=== PATIENT | female | born 1970 | race Caucasian/White ===

== ENCOUNTER 2016-03-25 21:48 | Emergency (ER) | payer SELFPAY ==
[2016-03-25] MEDS ORDERED: NAPROXEN 250 MG TAB As Ordered ONE (23:08)
--- NOTE | 2016-03-25 23:18 | EDDOCDS ---
Nurse's Notes [facility] Name: Nita Alexis Age: 46 yrs Sex: Female : 1970 Arrival Date: 03/25/2016 Time: 21:48 Bed PR2 / Private MD: Adrienne Dozier Ellen Diagnosis: Olecranon bursitis, left elbow Presentation: 03/25 21:53 Presenting complaint: Patient states: she fell on elbow on Tez no exam has been cz doing ok until a couple of days ago she started with pain and swelling of joint. Adult Sepsis Screening: The patient does not have new or worsening altered mentation. Patient's respiratory rate is less than 22. Systolic blood pressure is greater than 100. Patient has a qSOFA score of 0- Negative Sepsis Screen. Suicide/Homicide risk assessment- the patient denies having any suicidal and/or homicidal ideations and does not present with any other emotional, behavioral or mental health complaints. Status: Patient is not a employment service specialist or dependent. Transition of care: patient was not received from another setting of care. 21:53 Acuity: RAMAN Level 4 cz 21:53 Method Of Arrival: Walkin/Carried/Asstd cz Triage Assessment: 21:57 General: Appears uncomfortable. Pain: Location: left antecubital area and left elbow cz Pain currently is 8 out of 10 on a pain scale. HIV screening NA for this visit Offered previously. 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 none - PMHx: Anxiety; Depression; Sleep Apnea w/ CPAP; - PSHx: LEEP Procedure; Cholecystectomy; ; - Social history: Smoking status: Patient uses tobacco products, heavy tobacco smoker. No barriers to communication noted, The patient speaks fluent Mohawk, Speaks appropriately for age. - Family history: No immediate family members are acutely ill. - : The pt / caregiver states he / she is not on anticoagulants. Home medication list is obtained from the patient. - Exposure Risk Screening:: None identified. Screenin:15 Screening information is obtained from the patient. Fall risk: No risks identified. mb9 Assistance ADL's: requires no assistance with activities of daily living. Abuse/DV Screen: The patient / caregiver reports he/she is: not in a situation that causes fear, pain or injury. Nutritional screening: No deficits noted. Advance Directives: There is. home support is adequate. Assessment: 23:15 General: Appears in no apparent distress, Behavior is appropriate for age, cooperative. mb9 Pain: Location: left elbow Pain currently is 3 out of 10 on a pain scale. Respiratory: Airway is patent Respiratory effort is even, unlabored. Musculoskeletal: Circulation, motion, and sensation intact. Vital Signs: 21:51 BP 113 / 72; Pulse 98; Resp 18 S; Temp 95.9(O); Pulse Ox 99% on R/A; Weight 122.92 kg gr2 (R); Height 5 ft. 2 in. (157.48 cm) (R); Pain 4/10; 23:17 BP 121 / 78; Pulse 94; Resp 17; Temp 96.3(T); Pulse Ox 98% ; mb9 21:51 Body Mass Index 49.57 (122.92 kg, 157.48 cm) gr2 Vitals: 21:51 Log In Time: March 25, 2016 at 21:51. gr2 ED Course: 21:51 Patient visited by Ashley Kaplan. gr2 21:51 Adrienne Dozier is Private Physician. gr2 21:51 Patient moved to Waiting gr2 21:52 Patient visited by Ashley Kaplan. gr2 21:53 Patient moved to Pre RCE gr2 21:56 Triage Initiated cz 22:52 [facility] Bojor[facility] F[facility]. le 22:53 Patient visited by Cecilia Bojorquez FNP. le 22:53 Patient moved to PR2 / 26 mdr 23:02 Adrienne Dozier is Referral Physician. le 23:04 Patient visited by Cecilia Bojorquez FNP. le 23:15 The patient / caregiver is instructed regarding the plan of care and ED course. mb9 23:15 No IV's were initiated during this patient's visit. No procedures done that require mb9 assistance. Administered Medications: 23:14 Drug: Naproxen 500 mg [naproxen 250 mg tablet (2 tabs)] Route: PO; mb9 Order Results: There are currently no results for this order. Outcome: 23:02 Discharge ordered by Provider. le 23:15 Discharge Assessment: Patient awake, alert and oriented x 3. No cognitive and/or mb9 functional deficits noted. Patient verbalized understanding of disposition instructions. patient administered narcotics - no. The following High Risk Discharge criteria are identified: None. Discharged to home ambulatory. Condition: good Condition: stable Condition: improved. Discharge instructions given to patient, Instructed on discharge instructions, follow up and referral plans. medication usage, Demonstrated understanding of instructions, medications, Pt was receptive of discharge instructions/ teaching. Prescriptions given X 1. No special radiology studies were completed. Property :Personal belongings accompany Pt. 23:17 Patient left the ED. mb9 Signatures: Loki Berman, RN RN cz Cecilia Bojorquez, COMPOSITION FLOOR LAYER COMPOSITION FLOOR LAYER Ashley Denny gr2 Jak De Guzman RN RN mb9 Lizandro Cortes, JC DATA ANALYTICS CHIEF SCIENTIST mdr MTDD
--- NOTE | 2016-03-25 23:18 | EDDOCDS ---
Physician Documentation [facility] Name: Nita Alexis Age: 46 yrs Sex: Female : 1970 Arrival Date: 03/25/2016 Time: 21:48 Bed PR Private MD: Adrienne Dozier Ellen Disposition: 03/25/16 23:02 Discharged to Home/Self Care. Impression: Olecranon bursitis, left elbow. - Condition is Stable. - Discharge Instructions: Repetitive Strain Injuries, Olecranon Bursitis. - Prescriptions for Naprosyn 500 mg Oral Tablet - take 1 tablet by ORAL route 2 times per day take with food; 30 tablet. - Medication Reconciliation, Local Pharmacy Hours form. - Follow up: Adrienne Dozier; When: As needed; Reason: Recheck today's complaints, Continuance of care. - Problem is new. - Symptoms are unchanged. - Notes: Return to the ED for any further concerns Historical: - Allergies: No known drug Allergies; - Home Meds: 1. none - PMHx: Anxiety; Depression; Sleep Apnea w/ CPAP; - PSHx: LEEP Procedure; Cholecystectomy; ; - Social history: Smoking status: Patient uses tobacco products, heavy tobacco smoker. No barriers to communication noted, The patient speaks fluent Azeri, Speaks appropriately for age. - Family history: No immediate family members are acutely ill. - : The pt / caregiver states he / she is not on anticoagulants. Home medication list is obtained from the patient. - Exposure Risk Screening:: None identified. 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 2 in. (157.48 cm) (R); Pain 4/10; 23:17 BP 121 / 78; Pulse 94; Resp 17; Temp 96.3(T); Pulse Ox 98% ; mb9 21:51 Body Mass Index 49.57 (122.92 kg, 157.48 cm) gr2 MDM: 22:01 Elbow, Complete Ordered. EDMS 22:59 Naproxen 500 mg PO once; administer with food or milk ordered. le 22:59 Teja Wrap ordered. le Administered Medications: 23:14 Drug: Naproxen 500 mg [naproxen 250 mg tablet (2 tabs)] Route: PO; mb9 Signatures: Dispatcher [employer] Loki Aquino RN RN cz Westcott, Lisa, HORSER UP HORSER UP Jak Marshall RN RN mb9 MTDD
--- NOTE | 2016-03-26 07:06 | REP ---
Clinical: Deformity and swelling . Technique: AP, bilateral oblique views of the left elbow. Findings: No acute fracture or dislocation is appreciated. Joint spaces and surrounding soft tissues appear normal. No subcutaneous emphysema or foreign body identified. Impression: Normal three views of the left elbow radiographs. Signed by Partha Murphy MD 03/26/2016 06:57 A
--- NOTE | 2016-03-28 00:18 | EDDOCDS ---
Physician Documentation [facility] Name: Nita Alexis Age: 46 yrs Sex: Female : 1970 Arrival Date: 03/25/2016 Time: 21:48 Bed PR Private MD: Adrienne Dozier Ellen Disposition: 03/25/16 23:02 Discharged to Home/Self Care. Impression: Olecranon bursitis, left elbow. - Condition is Stable. - Discharge Instructions: Repetitive Strain Injuries, Olecranon Bursitis. - Prescriptions for Naprosyn 500 mg Oral Tablet - take 1 tablet by ORAL route 2 times per day take with food; 30 tablet. - Medication Reconciliation, Local Pharmacy Hours form. - Follow up: Adrienne Dozier; When: As needed; Reason: Recheck today's complaints, Continuance of care. - Problem is new. - Symptoms are unchanged. - Notes: Return to the ED for any further concerns Historical: - Allergies: No known drug Allergies; - Home Meds: 1. none - PMHx: Anxiety; Depression; Sleep Apnea w/ CPAP; - PSHx: LEEP Procedure; Cholecystectomy; ; - Social history: Smoking status: Patient uses tobacco products, heavy tobacco smoker. No barriers to communication noted, The patient speaks fluent Telugu, Speaks appropriately for age. - Family history: No immediate family members are acutely ill. - : The pt / caregiver states he / she is not on anticoagulants. Home medication list is obtained from the patient. - Exposure Risk Screening:: None identified. 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 2 in. (157.48 cm) (R); Pain 4/10; 23:17 BP 121 / 78; Pulse 94; Resp 17; Temp 96.3(T); Pulse Ox 98% ; mb9 21:51 Body Mass Index 49.57 (122.92 kg, 157.48 cm) gr2 MDM: 22:01 Elbow, Complete Ordered. EDMS 22:59 Naproxen 500 mg PO once; administer with food or milk ordered. le 22:59 Teja Wrap ordered. le 23:22 [facility] Payment Agreement was scanned into [employer] and attached to record. [facility] :23 Financial registration complete. 03/26 12:01 T-Sheet-- Draft Copy was scanned into [employer] and attached to record. gb Administered Medications: 03/25 23:14 Drug: Naproxen 500 mg [naproxen 250 mg tablet (2 tabs)] Route: PO; mb9 Signatures: Dispatcher [employer] EDMS Loki Berman, RN RN cz Clare Richey, Reg Reg gb Cecilia Bojorquez, COKE LOADER COKE LOADER Jak Marshall RN RN mb9 Arti Vogt, Reg Reg [email or web address] The chart was reviewed and I authenticate all verbal orders and agree with the evaluation and treatment provided.Attachments: 23:22 [facility] Payment Agreement [email or web address] 03/26 12:01 T-Sheet-- Draft Copy gb Chart Complete MTDD
--- NOTE | 2016-03-28 00:18 | EDDOCDS ---
Nurse's Notes [facility] Name: Nita Alexis Age: 46 yrs Sex: Female : 1970 Arrival Date: 03/25/2016 Time: 21:48 Bed PR2 / Private MD: Adrienne Dozier Ellen Diagnosis: Olecranon bursitis, left elbow Presentation: 03/25 21:53 Presenting complaint: Patient states: she fell on elbow on [place]z no exam has been cz doing ok until a couple of days ago she started with pain and swelling of joint. Adult Sepsis Screening: The patient does not have new or worsening altered mentation. Patient's respiratory rate is less than 22. Systolic blood pressure is greater than 100. Patient has a qSOFA score of 0- Negative Sepsis Screen. Suicide/Homicide risk assessment- the patient denies having any suicidal and/or homicidal ideations and does not present with any other emotional, behavioral or mental health complaints. Status: Patient is not a elevator service mechanic or dependent. Transition of care: patient was not received from another setting of care. 21:53 Acuity: RAMAN Level 4 cz 21:53 Method Of Arrival: Walkin/Carried/Asstd cz Triage Assessment: 21:57 General: Appears uncomfortable. Pain: Location: left antecubital area and left elbow cz Pain currently is 8 out of 10 on a pain scale. HIV screening NA for this visit Offered previously. 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 none - PMHx: Anxiety; Depression; Sleep Apnea w/ CPAP; - PSHx: LEEP Procedure; Cholecystectomy; ; - Social history: Smoking status: Patient uses tobacco products, heavy tobacco smoker. No barriers to communication noted, The patient speaks fluent Yakut, Speaks appropriately for age. - Family history: No immediate family members are acutely ill. - : The pt / caregiver states he / she is not on anticoagulants. Home medication list is obtained from the patient. - Exposure Risk Screening:: None identified. Screenin:15 Screening information is obtained from the patient. Fall risk: No risks identified. mb9 Assistance ADL's: requires no assistance with activities of daily living. Abuse/DV Screen: The patient / caregiver reports he/she is: not in a situation that causes fear, pain or injury. Nutritional screening: No deficits noted. Advance Directives: There is. home support is adequate. Assessment: 23:15 General: Appears in no apparent distress, Behavior is appropriate for age, cooperative. mb9 Pain: Location: left elbow Pain currently is 3 out of 10 on a pain scale. Respiratory: Airway is patent Respiratory effort is even, unlabored. Musculoskeletal: Circulation, motion, and sensation intact. Vital Signs: 21:51 BP 113 / 72; Pulse 98; Resp 18 S; Temp 95.9(O); Pulse Ox 99% on R/A; Weight 122.92 kg gr2 (R); Height 5 ft. 2 in. (157.48 cm) (R); Pain 4/10; 23:17 BP 121 / 78; Pulse 94; Resp 17; Temp 96.3(T); Pulse Ox 98% ; mb9 21:51 Body Mass Index 49.57 (122.92 kg, 157.48 cm) gr2 Vitals: 21:51 Log In Time: March 25, 2016 at 21:51. gr2 ED Course: 21:51 Patient visited by Ashley Kaplan. gr2 21:51 Adrienne Dozier is Private Physician. gr2 21:51 Patient moved to Waiting gr2 21:52 Patient visited by Ashley Kaplan. gr2 21:53 Patient moved to Pre RCE gr2 21:56 Triage Initiated cz 22:52 [facility] le 22:53 Patient visited by Cecilia Bojorquez FNP. le 22:53 Patient moved to PR2 / 26 mdr 23:02 Adrienne Dozier is Referral Physician. le 23:04 Patient visited by Cecilia Bojorquez FNP. le 23:15 The patient / caregiver is instructed regarding the plan of care and ED course. mb9 23:15 No IV's were initiated during this patient's visit. No procedures done that require mb9 assistance. 23:20 Patient name changed from Nita\S\\S\[place]\S\ to Nita\S\ \S\[place]. EDMS 23:22 [facility] [place] was scanned into [employer] and attached to record. [email or web address] 03/26 07:41 Elbow, Complete Returned. EDMS 12:01 T-Sheet-- Draft Copy was scanned into [employer] and attached to record. gb Administered Medications: 03/25 23:14 Drug: Naproxen 500 mg [naproxen 250 mg tablet (2 tabs)] Route: PO; mb9 Order Results: Radiology Order: Elbow, Complete Test: Elbow, Complete REASON FOR EXAMINATION: Deformity/Swelling; Clinical: Deformity and swelling .; ; Technique: AP, bilateral oblique views of the left elbow.; ; Findings:; No acute fracture or dislocation is appreciated. Joint spaces and surrounding; soft tissues appear normal. No subcutaneous emphysema or foreign body; identified.; ; Impression:; Normal three views of the left elbow radiographs.; ; ; Signed by; Partha Murphy MD 03/26/2016 06:57 A; Outcome: 23:02 Discharge ordered by Provider. le 23:15 Discharge Assessment: Patient awake, alert and oriented x 3. No cognitive and/or mb9 functional deficits noted. Patient verbalized understanding of disposition instructions. patient administered narcotics - no. The following High Risk Discharge criteria are identified: None. Discharged to home ambulatory. Condition: good Condition: stable Condition: improved. Discharge instructions given to patient, Instructed on discharge instructions, follow up and referral plans. medication usage, Demonstrated understanding of instructions, medications, Pt was receptive of discharge instructions/ teaching. Prescriptions given X 1. No special radiology studies were completed. Property :Personal belongings accompany Pt. 23:17 Patient left the ED. mb9 Signatures: [facility] Loki Berman RN RN cz Barnhardt, Gloria, Reg Reg gb Cecilia Bojorquez, GATHERING MACHINE FEEDER GATHERING MACHINE FEEDER Ashley Denny gr2 Jak De Guzman RN RN mb9 Lizandro Cortes, HEALTH ADMINISTRATOR HEALTH ADMINISTRATOR Arti Reveles, Reg Reg [email or web address] Chart Complete MTDD
--- NOTE | 2016-03-28 00:18 | EDDOCDS ---
Physician Documentation [facility] Name: Nita Alexis Age: 46 yrs Sex: Female : 1970 Arrival Date: 03/25/2016 Time: 21:48 Bed PR Private MD: Adrienne Dozier Ellen Disposition: 03/25/16 23:02 Discharged to Home/Self Care. Impression: Olecranon bursitis, left elbow. - Condition is Stable. - Discharge Instructions: Repetitive Strain Injuries, Olecranon Bursitis. - Prescriptions for Naprosyn 500 mg Oral Tablet - take 1 tablet by ORAL route 2 times per day take with food; 30 tablet. - Medication Reconciliation, Local Pharmacy Hours form. - Follow up: Adrienne Dozier; When: As needed; Reason: Recheck today's complaints, Continuance of care. - Problem is new. - Symptoms are unchanged. - Notes: Return to the ED for any further concerns Historical: - Allergies: No known drug Allergies; - Home Meds: 1. none - PMHx: Anxiety; Depression; Sleep Apnea w/ CPAP; - PSHx: LEEP Procedure; Cholecystectomy; ; - Social history: Smoking status: Patient uses tobacco products, heavy tobacco smoker. No barriers to communication noted, The patient speaks fluent Divehi, Speaks appropriately for age. - Family history: No immediate family members are acutely ill. - : The pt / caregiver states he / she is not on anticoagulants. Home medication list is obtained from the patient. - Exposure Risk Screening:: None identified. 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 2 in. (157.48 cm) (R); Pain 4/10; 23:17 BP 121 / 78; Pulse 94; Resp 17; Temp 96.3(T); Pulse Ox 98% ; mb9 21:51 Body Mass Index 49.57 (122.92 kg, 157.48 cm) gr2 MDM: 22:01 Elbow, Complete Ordered. EDMS 22:59 Naproxen 500 mg PO once; administer with food or milk ordered. le 22:59 Teja Wrap ordered. le 23:22 [facility] [place] Agreement was scanned into [employer] and attached to record. [facility] :23 Financial registration complete. 03/26 12:01 T-Sheet-- Draft Copy was scanned into [employer] and attached to record. gb Administered Medications: 03/25 23:14 Drug: Naproxen 500 mg [naproxen 250 mg tablet (2 tabs)] Route: PO; mb9 Signatures: Dispatcher [employer] EDMS Loki Berman, RN RN cz Clare Richey, Reg Reg gb Cecilia Bojorquez, BIT TAPPER BIT TAPPER Jak Marshall RN RN mb9 Arti Vogt, Reg Reg [email or web address] The chart was reviewed and I authenticate all verbal orders and agree with the evaluation and treatment provided.Attachments: 23:22 [facility] Payment Agreement [email or web address] 03/26 12:01 T-Sheet-- Draft Copy gb Chart Complete MTDD
== END 2016-03-25 23:17 | disposition home or self-care (01) ==
LOC: M ED 21:48
DX: M70.22 Olecranon bursitis, left elbow (principal); W19.XXXA Unspecified fall, initial encounter; Y92.89 Other specified places as the place of occurrence of the external cause; Y93.89 Activity, other specified; Y99.8 Other external cause status; G47.33 Obstructive sleep apnea (adult) (pediatric); F41.9 Anxiety disorder, unspecified; F32.9 Major depressive disorder, single episode, unspecified; F17.200 Nicotine dependence, unspecified, uncomplicated

== ENCOUNTER 2016-11-21 06:45 | Day surgery (SDC) | payer OTHER ==
[~2016-11-21] VITALS: Ht 157.5 cm; Wt 142.9 kg
[~2016-11-21 06:45] MED LIST: BUSP10TA PO; NAPR1TAB23 PO; NAPR500T3 PO; TRAM50TA2 PO; TRAZ-136 PO; TYLE325C PO
[2016-11-21] MEDS ORDERED: MIDAZOLAM INJ 2 MG/2 ML VIAL (J2250) As Ordered ONE ×3 (07:45→12:01)
[2016-11-21] MEDS ORDERED: fentaNYL 100 MCG/2 ML INJECTION (J3010) As Ordered ONE ×4 (07:45→11:27)
[2016-11-21] MEDS ORDERED: LIDOCAINE 2% INJ 100 MG/5 ML SDV (FOR ANES.) As Ordered ONE (07:58)
[2016-11-21] MEDS ORDERED: PROPOFOL 200 MG/20 ML VIAL As Ordered ONE (07:58)
[2016-11-21] MEDS ORDERED: ROCURONIUM BROMIDE 50 MG/5 ML VIAL/SYRINGE As Ordered ONE (07:58)
[2016-11-21] MEDS ORDERED: dexameTHASONE 4 MG/ML 1ML VIAL (J1100) As Ordered ONE (07:58)
[2016-11-21] MEDS ORDERED: ONDANSETRON 4MG/2ML VIAL (J2405) As Ordered ONE (07:58)
[2016-11-21] MEDS ORDERED: EPINEPHrine 1MG/ML INJ 30ML MD-VIAL As Ordered ONE (08:22)
[2016-11-21] MEDS ORDERED: HYDROmorphone HCL 2 MG/ML 1ML VIAL (J1170) As Ordered ONE (09:19)
[2016-11-21] MEDS ORDERED: LIDOCAINE 1% MDV INJ 50 ML VIAL As Ordered ONE (09:49)
[2016-11-21] MEDS ORDERED: LIDOCAINE 1% SDV INJ 30 ML VIAL As Ordered ONE (09:51)
[2016-11-21] MEDS: fentaNYL 100 MCG/2 ML INJECTION (J3010) IV PRN ×8 (10:28→11:47)
[2016-11-21] MEDS ORDERED: MEPERIDINE INJ 25 MG/ML VIAL (J2175) As Ordered ONE (10:49)
[2016-11-21] MEDS ORDERED: LR 1,000 ML IV SCH (11:00)
[2016-11-21] MEDS ORDERED: METOCLOPRAMIDE INJ 10MG/2ML VIAL (J2765) IV PRN (11:00)
[2016-11-21] MEDS ORDERED: MEPERIDINE INJ 25 MG/ML VIAL (J2175) IV PRN ×2 (11:00)
[2016-11-21] MEDS ORDERED: MORPHINE 4 MG/ML 1ML SYRINGE IV PRN (11:00)
[2016-11-21] MEDS ORDERED: PERCOCET 5MG/325MG TAB PO PRN (11:00)
[2016-11-21] MEDS ORDERED: ONDANSETRON 4MG/2ML VIAL (J2405) IV PRN (11:00)
[2016-11-21] MEDS ORDERED: NORCO, ANEXSIA 5/325MG TABLET (HYDROcodone/ACETAMINOPHEN) PO PRN ×2 (11:00)
--- NOTE | 2016-11-21 11:03 | RO ---
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 POSTPROCEDURE DIAGNOSIS: Left shoulder acromioclavicular (AC) joint degenerative arthritis with rotator cuff tendonitis. PROCEDURE: 1. Left shoulder arthroscopic distal clavicle incision. 2. Left shoulder arthroscopic assisted insertion of PainBuster catheter in the subacromial space. SURGEON: Dr. Calli Moreau. LETTER STAMPING MACHINE OPERATOR: ANESTHESIA: General endotracheal anesthesia. COMPLICATIONS: None. DESCRIPTION OF PROCEDURE: Antibiotics given intravenously preoperative and then successful general endotracheal tube anesthetic was established. Then she was placed in the semi-beach chair position and the spiral shoulder living[place] was utilized. Her left shoulder was then carefully prepped and draped in the usual sterile fashion. Then after an appropriate time-out, a posterior incision was made and the scope was introduced into the glenohumeral joint with excellent visualization and the glenohumeral articular cartilage was pristine. The labrum was not torn. The biceps was in place and not unstable and there was no rotator cuff tendinopathy noted from the inside of the joint. No evidence of any rotator cuff tear. Thus the scope was then placed into the subacromial space and we had excellent visualization and a bursectomy was performed so I could adequately see the superior surface of the rotator cuff and there was no obvious rotator cuff tear seen on the bursal side or any evidence of calcific tendonitis. I then used the ablator wand first through a lateral portal and an anterior portal to work my way over to the AC joint, which was markedly degenerative. Photographs were taken. Then I made sure that the cannula was established anteriorly directly into the AC joint with the ablator wand. I exposed the distal end of the clavicle and then used a 4.0 acromionizer bur to perform a formal distal clavicle excision taking photographs before and afterward. A nice complete decompression was noted. I also took some of the spurs off the inferior surface of the acromion, which is necessary for better visualization. Finding no other arthroscopically pathology, the PainBuster catheter was then introduced to the lateral portal and placed into position, photograph was taken. Then we concluded the procedure by copiously irrigating out the subacromial space, closed the arthroscopy portals with nylon sutures covered by Adaptic dry sterile bulky dressing. She was placed into her sling and awakened from general endotracheal tube anesthesia after having tolerated the procedure, transferred to the recovery room in stable condition. There were no intraoperative complications.
[2016-11-21] MEDS ORDERED: LEVALBUTEROL 1.25 MG/0.5 ML CONCENTRATE NEB As Ordered ONE (12:23)
[2016-11-21] MEDS ORDERED: LEVALBUTEROL 1.25 MG/0.5 ML CONCENTRATE NEB INH ONE (12:45)
[2016-11-21] MEDS ORDERED: MIDAZOLAM INJ 2 MG/2 ML VIAL (J2250) IV PRN (12:45)
[2016-11-21] MEDS ORDERED: PERCOCET 5MG/325MG TAB As Ordered ONE (12:46)
[2016-11-21 14:30] VITALS: BP 126/77
== END 2016-11-21 14:35 | disposition home or self-care (01) ==
LOC: M SDC 06:45
PROVIDERS: ATTEND Orthopaedic Surgery
DX: M75.32 Calcific tendinitis of left shoulder (principal); M19.012 Primary osteoarthritis, left shoulder; J45.909 Unspecified asthma, uncomplicated; G47.30 Sleep apnea, unspecified; Z79.899 Other long term (current) drug therapy; F41.9 Anxiety disorder, unspecified; F17.210 Nicotine dependence, cigarettes, uncomplicated
CPT/HCPCS: 29824; 29826; J0690; J1100; J1170; J2175; J2250; J2405; J3010

== ENCOUNTER 2017-05-18 11:07 | Emergency (ER) | payer SELFPAY, OTHER ==
[2017-05-18] MEDS: IBUPROFEN 800 MG TAB PO (11:59)
[2017-05-18] MEDS: ADACEL/BOOSTRIX VACCINE (DIPHTH/PERTUSS/ACELL/TETANUS)0.5ML SYR (90715) IM (12:00)
[2017-05-18] MEDS: BACITRACIN OINT 30GM TOP (14:37)
== END 2017-05-18 14:41 | disposition home or self-care (01) ==
LOC: M ED 11:07
DX: S60.512A Abrasion of left hand, initial encounter (principal); V87.9XXA Person injured in other specified (collision)(noncollision) transport accidents involving nonmotor vehicle (traffic), initial encounter; Y92.413 State road as the place of occurrence of the external cause; L03.114 Cellulitis of left upper limb; J45.909 Unspecified asthma, uncomplicated; G47.30 Sleep apnea, unspecified; F41.9 Anxiety disorder, unspecified; F33.9 Major depressive disorder, recurrent, unspecified; F17.210 Nicotine dependence, cigarettes, uncomplicated
CPT/HCPCS: 90715

== ENCOUNTER → 2017-12-29 | Outpatient (CLI) | payer MEDICAID | LOC: M OUTALCOH 08:58 | DX: F15.20 Other stimulant dependence, uncomplicated (principal); F14.20 Cocaine dependence, uncomplicated ==

== ENCOUNTER 2018-01-08 13:50 | Outpatient (RCR) | payer MEDICAID | END 2018-02-05 | LOC: M OUTALCOH 01-12 09:00 | DX: F15.20 Other stimulant dependence, uncomplicated (principal); F14.20 Cocaine dependence, uncomplicated ==

== ENCOUNTER → 2018-03-08 | Outpatient (RCR) | payer MEDICAID ==
[~2018-03-08] MED LIST changes: +CEPH500T PO; +NAPR-885 PO; -NAPR500T3 PO; -TRAZ-136 PO; +TRAZ-163 PO
== END ==
LOC: M OUTALCOH 02-08 08:14
PROVIDERS: ATTEND Psychiatry & Neurology Psychiatry
DX: F15.20 Other stimulant dependence, uncomplicated (principal); F14.20 Cocaine dependence, uncomplicated

== ENCOUNTER 2018-04-07 08:45 | Outpatient (RCR) | payer MEDICAID | END 2018-04-08 | LOC: M OUTALCOH 08:45 | PROVIDERS: ATTEND Psychiatry & Neurology Psychiatry | DX: F15.20 Other stimulant dependence, uncomplicated (principal); F14.20 Cocaine dependence, uncomplicated ==

== ENCOUNTER 2018-04-09 12:07 | Outpatient (RCR) | payer MEDICAID ==
[2018-04-29] MEDS ORDERED: KETO10TAB PO (22:28)
[2018-04-29] MEDS ORDERED: AMOX875T PO (22:28)
== END 2018-05-06 ==
LOC: M OUTALCOH 12:07
PROVIDERS: ATTEND Psychiatry & Neurology Psychiatry
DX: F15.20 Other stimulant dependence, uncomplicated (principal); F14.20 Cocaine dependence, uncomplicated

== ENCOUNTER 2018-04-29 21:20 | Emergency (ER) | payer MEDICAID, OTHER ==
[~2018-04-29] VITALS: Ht 157.5 cm; Wt 147.7 kg
[2018-04-29 21:20] VITALS: BP 141/74
[2018-04-29] MEDS ORDERED: AMOX875T PO (22:28)
[2018-04-29] MEDS ORDERED: KETO10TAB PO (22:28)
[2018-04-29] MEDS ORDERED: AMOXICILLIN 500 MG CAP PO ONE (22:30)
[2018-04-29] MEDS ORDERED: LIDOCAINE VISCOUS 2% SOLN 15ML UDC MT ONE (22:30)
[2018-04-29] MEDS ORDERED: KETOROLAC TROMETHAMINE 10 MG TAB PO ONE (22:30)
== END 2018-04-29 22:37 | disposition home or self-care (01) ==
LOC: M ED 21:20
DX: K04.7 Periapical abscess without sinus (principal); F17.220 Nicotine dependence, chewing tobacco, uncomplicated; J45.909 Unspecified asthma, uncomplicated; F41.9 Anxiety disorder, unspecified; F32.9 Major depressive disorder, single episode, unspecified; E66.01 Morbid (severe) obesity due to excess calories

== ENCOUNTER → 2018-06-06 | Outpatient (CLI) | payer OTHER ==
[~2018-06-06] MED LIST changes: +AMOX875T PO; +KETO10TAB PO
--- NOTE | 2018-06-11 18:44 | SLEEPCENT ---
DATE OF PROCEDURE: 06/06/2018 REFERRING PROVIDER: Ms. Adrienne Lowe Maurilio Dozier NP INTERPRETATION: Nocturnal polysomnography was performed for the re-titration of pressure therapy in this patient with severe obstructive sleep apnea associated with nocturnal hypoxemia. She had previously had a titration which had shown bilevel of 27/ was effective, and a re-titration showed continuous positive airway pressure (CPAP) of 9 to be effective. A total of 7 hours and 7 minutes of data was reviewed with 350 minutes of sleep identified. Sleep latency was 9 minutes. Rapid eye movement (REM) latency was 77.5 minutes. Report states that no slow wave sleep was seen, but I felt there was slow wave sleep present in review of the tracings. Sleep efficiency was 83.7%. EKG showed normal sinus rhythm with an average heart rate of 80 beats per minute. Speeding and slowing was noted surrounding some respiratory events. No epileptiform discharge observed. The patient had been placed on continuous positive airway pressure (CPAP) at 9 cm of water pressure via a medium ResMed Mccauley FX nasal pillow device, and the lights were dimmed. CPAP started at 9 cm of water pressure was taken to a high of 14 cm of water pressure, which appeared optimal. On this pressure, her apnea-hypopnea index (AHI) was 0, as was her respiratory arousal index (DEL RIO). Oxygen saturation rita appeared to be 88% with the vast majority of time spent in the 90th percentile. Periodic limb movement index was markedly elevated at 106.3. Supine REM sleep was seen on this pressure with a reasonably good waveform. IMPRESSION: 1. Obstructive sleep apnea, severe, reasonably palliated on CPAP at 14 cm of water pressure, including supine REM sleep. Nocturnal hypoxemia also appeared to be eradicated. 2. Periodic limb movements, severe. RECOMMENDATIONS: Recommend continuation with CPAP at the above pressure via a medium ResMed Mccauley FX nasal pillow device or mask of her preference. Clinical correlation will be necessary to ensure eradication of symptoms. TARI
== END ==
LOC: M SLEEP 19:01
PROVIDERS: ATTEND Internal Medicine Pulmonary Disease
DX: G47.33 Obstructive sleep apnea (adult) (pediatric) (principal); G47.61 Periodic limb movement disorder

== ENCOUNTER → 2019-04-29 | Outpatient (CLI) | payer OTHER ==
[~2019-04-29] MED LIST changes: -TRAZ-163 PO; +TRAZ-257 PO
== END ==
LOC: M OUTALCOH 08:01
PROVIDERS: ATTEND Psychiatry & Neurology Addiction Medicine
DX: F14.20 Cocaine dependence, uncomplicated (principal); F15.10 Other stimulant abuse, uncomplicated

== ENCOUNTER 2019-05-30 18:23 | Emergency (ER) | payer OTHER ==
[~2019-05-30] VITALS: Ht 160 cm; Wt 150.0 kg
[2019-05-30] MEDS ORDERED: SERT50TA29 PO (18:37)
[2019-05-30] MEDS ORDERED: TRAZ-252 PO (18:37)
[2019-05-30] MEDS ORDERED: NS 1,000 ML IV ONE (19:00)
[2019-05-30 19:47] LABS: ALBUMIN 3.5 GM/DL (3.2-5.2); ALT/SGPT 27 U/L (12-78); AMYLASE 52 U/L (25-115); BILIRUBIN,DIRECT 0.3 MG/DL (0.0-0.2); BILIRUBIN,TOTAL 0.6 MG/DL (0.2-1.0); BLOOD UREA NITROGEN 12 MG/DL (7-18); CALCIUM LEVEL 8.9 MG/DL (8.5-10.1); CARBON DIOXIDE LEVEL 28 MEQ/L (21-32); CHLORIDE LEVEL 103 MEQ/L (98-107); CK-MB VALUE MASS < 1.0 NG/ML (<3.6); CPK CREATINE PHOSPHOKINASE 85 U/L (26-192); CREATININE FOR GFR 0.83 MG/DL (0.55-1.30); GLOMERULAR FILTRATION RATE > 60.0 (>58); GLUCOSE, FASTING 119 MG/DL (70-100); LIPASE 188 U/L (73-393); MB/CK RELATIVE INDEX 1.18 (< OR =4); POTASSIUM SERUM 4.6 MEQ/L (3.5-5.1); SODIUM LEVEL 136 MEQ/L (136-145); TOTAL PROTEIN 7.3 GM/DL (6.4-8.2); TROPONIN I < 0.02 NG/ML (< 0.10)
[2019-05-30 19:55] LABS: BASO % 0.2 % (0.0-1.0); EOS % 0.2 % (0.0-3.0); HEMATOCRIT 44.9 % (36.0-47.0); HEMOGLOBIN 14.7 g/dl (12.0-15.5); LYMPH # 0.9 10^3/uL (1.5-5.0); LYMPH % 8.8 % (24.0-44.0); MEAN CORPUSCULAR HEMOGLOBIN 30.2 pg (27.0-33.0); MEAN CORPUSCULAR HGB CONC 32.7 g/dl (32.0-36.5); MEAN CORPUSCULAR VOLUME 92.4 fl (80.0-96.0); MONO # 0.4 10^3/uL (0.0-0.8); MONO % 3.9 % (0.0-5.0); NEUTROPHILS % 86.5 % (36.0-66.0); PLATELET COUNT, AUTOMATED 309 10^3/uL (150-450); RED BLOOD COUNT 4.86 10^6/uL (4.00-5.40); WHITE BLOOD COUNT 10.4 10^3/uL (4.0-10.0)
[2019-05-30] MEDS ORDERED: METOCLOPRAMIDE INJ 10MG/2ML VIAL (J2765) IV ONE (20:00)
--- NOTE | 2019-05-30 20:23 | REP ---
Clinical: Epigastric pain . Comparison: None . Findings: The mediastinum and cardiac silhouette are stable and within normal limits for portable technique. The lung fernandez are clear without acute consolidation, effusion, or pneumothorax. Skeletal structures are intact. Impression: No acute cardiopulmonary process appreciated. Electronically Signed by Partha Murphy MD 05/30/2019 08:14 P
[2019-05-30] MEDS ORDERED: DICYCLOMINE 10 MG CAP PO ONE (20:30)
[2019-05-30] MEDS ORDERED: SIMETHICONE 80 MG CHEW TAB PO ONE (20:30)
[2019-05-30 21:06] VITALS: BP 110/66
[2019-05-30] MEDS ORDERED: SIME180C PO (21:06)
--- NOTE | 2019-05-31 05:44 | ECGEPIP ---
[facility] - ED Test Date: 2019-05-30 Pat Name: MICHELLE BARRAGAN Department: Room: - Gender: Female Securities Attorney: RODRIGUEZ : 1970 Requested By: CHARITY CONNOLLY PA-C. Order Number: [id number] Reading MD: Monster Wills Measurements Intervals [place] Rate: 94 P: 64 CT: 126 QRS: 22 QRSD: 79 T: 54 QT: 320 QTc: 401 Interpretive Statements SINUS RHYTHM LOW QRS VOLTAGE IN PRECORDIAL LEADS NO PRIORS FOR COMPARISON Electronically Signed on 05-31-2019 5:44:10 EDT by Monster Wills
== END 2019-05-30 21:28 | disposition home or self-care (01) ==
LOC: M ED 18:23 → EDBD 18:23 → M ED 21:28
DX: R14.0 Abdominal distension (gaseous) (principal); R14.1 Gas pain; R11.0 Nausea; F14.10 Cocaine abuse, uncomplicated; G47.30 Sleep apnea, unspecified; F33.9 Major depressive disorder, recurrent, unspecified; F41.9 Anxiety disorder, unspecified; Z79.899 Other long term (current) drug therapy

== ENCOUNTER 2019-06-02 11:00 | Outpatient (RCR) | payer OTHER ==
[~2019-06-02 11:00] MED LIST changes: +SERT50TA29 PO; +SIME180C PO; +TRAZ-252 PO
== END 2019-06-07 ==
LOC: M OUTALCOH 11:00
PROVIDERS: ATTEND Psychiatry & Neurology Addiction Medicine
DX: F15.10 Other stimulant abuse, uncomplicated (principal); F14.20 Cocaine dependence, uncomplicated; F17.200 Nicotine dependence, unspecified, uncomplicated

== ENCOUNTER 2019-07-06 08:45 | Outpatient (RCR) | payer OTHER | END 2019-07-07 | LOC: M OUTALCOH 08:45 | PROVIDERS: ATTEND Psychiatry & Neurology Addiction Medicine | DX: F15.10 Other stimulant abuse, uncomplicated (principal); F14.20 Cocaine dependence, uncomplicated; F17.200 Nicotine dependence, unspecified, uncomplicated ==

== ENCOUNTER 2019-08-04 09:00 | Outpatient (RCR) | payer OTHER | END 2019-08-07 | LOC: M OUTALCOH 09:00 | PROVIDERS: ATTEND Psychiatry & Neurology Addiction Medicine | DX: F15.10 Other stimulant abuse, uncomplicated (principal); F14.20 Cocaine dependence, uncomplicated; F17.200 Nicotine dependence, unspecified, uncomplicated ==

== ENCOUNTER 2019-08-18 15:51 | Emergency (ER) | payer OTHER ==
[~2019-08-18] VITALS: Ht 157.5 cm; Wt 147.7 kg
[2019-08-18 15:51] VITALS: BP 158/83
[2019-08-18] MEDS ORDERED: ACETAMINOPHEN 500 MG TAB PO ONE (16:30)
--- NOTE | 2019-08-18 17:23 | REP ---
CHEST: REASON FOR EXAM: Pyrexia. COMPARISON: Multiple, the latest 05/30/2019. The technique utilized in obtaining the radiograph has magnified the cardiac silhouette and accentuated the interstitial markings. FINDINGS: The superior mediastinal structures are midline. The cardiac silhouette is unremarkable in size, shape, and position. The diaphragmatic surfaces of the lungs are regular, and the costophrenic angles are clear. The pulmonary fernandez are clear. The imaged osseous structures are intact. IMPRESSION: There is no acute cardiopulmonary disease. No change from the prior exam. Electronically Signed by Hardeep Roman DO 08/19/2019 09:21 A
== END 2019-08-18 18:13 | disposition home or self-care (01) ==
LOC: M ED 15:51
DX: J06.9 Acute upper respiratory infection, unspecified (principal); E66.01 Morbid (severe) obesity due to excess calories; F17.200 Nicotine dependence, unspecified, uncomplicated; Z79.899 Other long term (current) drug therapy

== ENCOUNTER 2019-09-05 08:45 | Outpatient (RCR) | payer OTHER | END 2019-09-06 | LOC: M OUTALCOH 08:45 | PROVIDERS: ATTEND Psychiatry & Neurology Addiction Medicine | DX: F15.10 Other stimulant abuse, uncomplicated (principal); F14.20 Cocaine dependence, uncomplicated; F17.200 Nicotine dependence, unspecified, uncomplicated ==

== ENCOUNTER 2019-09-26 08:45 | Outpatient (RCR) | payer OTHER | END 2019-10-07 | LOC: M OUTALCOH 08:45 | PROVIDERS: ATTEND Psychiatry & Neurology Addiction Medicine | DX: F15.10 Other stimulant abuse, uncomplicated (principal); F14.20 Cocaine dependence, uncomplicated; F17.200 Nicotine dependence, unspecified, uncomplicated ==

== ENCOUNTER → 2020-07-09 | Outpatient (REF) | payer OTHER ==
[~2020-07-09] MED LIST changes: -SIME180C PO; +SIME180C25 PO
== END ==
LOC: M LAB REF 17:08
PROVIDERS: ATTEND Pediatrics
DX: F19.10 Other psychoactive substance abuse, uncomplicated (principal); Z11.3 Encounter for screening for infections with a predominantly sexual mode of transmission

== ENCOUNTER → 2020-08-15 | Outpatient (CLI) | payer OTHER ==
--- NOTE | 2020-08-16 04:42 | REP ---
INDICATION: OBSTRUCTIVE SLEEP APNEA (ADULT) (PEDIATRIC) COMPARISON: 08/18/2019 TECHNIQUE: PA and lateral. FINDINGS: The mediastinum and cardiac silhouette are normal. The lung fernandez are clear and without acute consolidation, effusion, or pneumothorax. The skeletal structures are intact and normal. IMPRESSION: No acute cardiopulmonary process. <Electronically signed by Partha Murphy > 08/16/20 [id number]
== END ==
LOC: M RAD 13:39
PROVIDERS: ATTEND Nurse Practitioner Family
DX: G47.33 Obstructive sleep apnea (adult) (pediatric) (principal)

== ENCOUNTER → 2020-08-28 | Outpatient (REF) ==
--- NOTE | 2020-08-28 16:24 | REP ---
INDICATION: DDD. COMPARISON: None TECHNIQUE: AP and lateral views FINDINGS: Vertebral body height and alignment is within normal limits. There is anterior lipping L3-L5 inclusive. Degenerative facet joint changes are seen L4-5 and L5-S1. There is marginal osteophyte formation seen bilaterally at L3-4 and on the left at L4-5. There is posterior disc space narrowing L3-4 to L5-S1 inclusive. The pedicles appear to be intact bilaterally. Degenerative changes seen involving the sacroiliac joints. There is mild sclerosis on the iliac side of each SI joint. IMPRESSION: 1. Chronic lumbar spine changes as described above. 2. Chronic changes seen involving the SI joints although this is not an SI joint study. <Electronically signed by Hardeep Roman > 08/28/20 [id number]
== END ==
LOC: M RAD 15:57
PROVIDERS: ATTEND Internal Medicine
DX: M51.36 Other intervertebral disc degeneration, lumbar region (principal); M51.37 Other intervertebral disc degeneration, lumbosacral region

== ENCOUNTER → 2021-07-30 | Outpatient (CLI) | payer OTHER | LOC: M RAD 13:11 | PROVIDERS: ATTEND Physician Assistant Medical | DX: M25.542 Pain in joints of left hand (principal) ==

== ENCOUNTER → 2021-12-08 | Outpatient (CLI) | payer OTHER ==
[~2021-12-08] MED LIST changes: +ALBU2.5V10 INH; +ALBU8.5H INH; +FLUT1INH3 INH; +INCR1INH INH; +MELO15TA28 PO
== END ==
LOC: M LABSMTC 10:34
PROVIDERS: ATTEND Anesthesiology
DX: Z01.812 Encounter for preprocedural laboratory examination (principal); Z20.822 Contact with and (suspected) exposure to COVID-19

== ENCOUNTER → 2022-01-08 | Outpatient (REF) | payer OTHER ==
[2022-01-08 18:07] LABS: BASO # 0.1 10^3/uL (0.0-0.2); BASO % 0.8 % (0.0-1.0); EOS # 0.3 10^3/uL (0.0-0.5); EOS % 2.3 % (0.0-3.0); HEMATOCRIT 41.6 % (36.0-47.0); HEMOGLOBIN 12.9 g/dl (12.0-15.5); LYMPH # 3.1 10^3/uL (1.5-5.0); LYMPH % 27.9 % (24.0-44.0); MEAN CORPUSCULAR HEMOGLOBIN 29.5 pg (27.0-33.0); MONO # 0.9 10^3/uL (0.0-0.8); MONO % 7.9 % (2.0-8.0); NEUTROPHILS # 6.8 10^3/uL (1.5-8.5); NEUTROPHILS % 60.8 % (36.0-66.0); PLATELET COUNT, AUTOMATED 295 10^3/uL (150-450); RED BLOOD COUNT 4.38 10^6/uL (4.00-5.40); WHITE BLOOD COUNT 11.1 10^3/uL (4.0-10.0)
[2022-01-08 19:09] LABS: ALBUMIN 3.3 GM/DL (3.2-5.2); ALT/SGPT 35 U/L (12-78); BILIRUBIN,TOTAL 0.3 MG/DL (0.2-1.0); BLOOD UREA NITROGEN 11 MG/DL (7-18); CARBON DIOXIDE LEVEL 28 MEQ/L (21-32); CHLORIDE LEVEL 107 MEQ/L (98-107); GLOMERULAR FILTRATION RATE > 60.0 (>51); GLUCOSE, FASTING 93 MG/DL (70-100); HEMOGLOBIN A1c 6.3 %; POTASSIUM SERUM 4.2 MEQ/L (3.5-5.1); SODIUM LEVEL 140 MEQ/L (136-145); TOTAL PROTEIN 7.1 GM/DL (6.4-8.2)
== END ==
LOC: M LAB REF 17:18
PROVIDERS: ATTEND Pediatrics
DX: E66.01 Morbid (severe) obesity due to excess calories (principal)

== ENCOUNTER → 2022-08-07 | Outpatient (REF) | LOC: M RAD 12:32 | PROVIDERS: ATTEND Internal Medicine | DX: M54.50 Low back pain, unspecified (principal) ==

== ENCOUNTER → 2023-11-23 | Outpatient (CLI) | payer OTHER ==
[2023-11-23 17:09] LABS: BASO # 0.1 10^3/uL (0.0-0.2); BASO % 0.6 % (0.0-1.0); EOS # 0.2 10^3/uL (0.0-0.5); EOS % 2.1 % (0.0-3.0); HEMATOCRIT 43.3 % (36.0-47.0); HEMOGLOBIN 13.7 g/dl (12.0-15.5); LYMPH # 2.8 10^3/uL (1.5-5.0); LYMPH % 28.7 % (24.0-44.0); MEAN CORPUSCULAR HEMOGLOBIN 28.7 pg (27.0-33.0); MEAN CORPUSCULAR HGB CONC 31.6 g/dl (32.0-36.5); MEAN CORPUSCULAR VOLUME 90.8 fl (80.0-96.0); MONO # 0.6 10^3/uL (0.0-0.8); MONO % 5.9 % (2.0-8.0); NEUTROPHILS % 62.3 % (36.0-66.0); PLATELET COUNT, AUTOMATED 290 10^3/uL (150-450); RED BLOOD COUNT 4.77 10^6/uL (4.00-5.40); WHITE BLOOD COUNT 9.7 10^3/uL (4.0-10.0)
== END ==
LOC: M RAD 12:59
PROVIDERS: ATTEND Pediatrics
DX: M79.604 Pain in right leg (principal); R06.00 Dyspnea, unspecified

== ENCOUNTER 2024-05-12 21:38 | Inpatient (IN) | payer OTHER ==
[~2024-05-12] VITALS: Ht 157.5 cm; Wt 162.4 kg
[~2024-05-12 21:38] MED LIST changes: -SIME180C25 PO; +SIME1CAP4 PO
[2024-05-12] MEDS ORDERED: TREL1AER INH (21:46)
[2024-05-12] MEDS: IPRATROPIUM 0.5MG/ALBUTEROL 2.5MG INH SOL UD 3ML (DUONEB) NEB SCH (22:55)
[2024-05-12] MEDS: methylPREDNISolone 125MG 2ML VIAL IV ONE (23:16)
[2024-05-12 23:18] LABS: VENOUS BASE EXCESS 3.5 (-2.0-2.0); VENOUS HCO3 31.3 MMOL/L (23.0-27.0); VENOUS O2 SATURATION 88.5 % (60.0-80.0); VENOUS PARTIAL PRESSURE CO2 60.8 mmHg (38.0-50.0); VENOUS PARTIAL PRESSURE O2 59.5 mmHg (30.0-50.0); VENOUS PH 7.329 UNITS (7.330-7.430); VENOUS STANDARD HCO3 27.3 MMOL/L; VENOUS TOTAL CO2 33.1 MMOL/L (24.0-28.0)
[2024-05-12 23:28] LABS: BASO % 0.4 % (0.0-1.0); EOS % 0.3 % (0.0-3.0); HEMATOCRIT 44.3 % (36.0-47.0); HEMOGLOBIN 14.1 g/dl (12.0-15.5); LYMPH # 1.6 10^3/uL (1.5-5.0); LYMPH % 16.8 % (24.0-44.0); MEAN CORPUSCULAR HGB CONC 31.8 g/dl (32.0-36.5); MEAN CORPUSCULAR VOLUME 91.2 fl (80.0-96.0); MONO % 10.2 % (2.0-8.0); NEUTROPHILS # 7.1 10^3/uL (1.5-8.5); PLATELET COUNT, AUTOMATED 275 10^3/uL (150-450); RED BLOOD COUNT 4.86 10^6/uL (4.00-5.40); WHITE BLOOD COUNT 9.8 10^3/uL (4.0-10.0)
[2024-05-12 23:48] LABS: CPK CREATINE PHOSPHOKINASE 118 U/L (34-145)
[2024-05-12 23:49] LABS: ALBUMIN 3.2 G/DL (3.2-5.2); ALKALINE PHOSPHATASE 164 U/L (35-104); ALT/SGPT 30 U/L (7.0-40); AST/SGOT 20 U/L (<34); BILIRUBIN,DIRECT 0.2 MG/DL (<0.4); BILIRUBIN,TOTAL 0.4 MG/DL (0.3-1.2); BLOOD UREA NITROGEN 12 MG/DL (9-23); CALCIUM LEVEL 8.6 MG/DL (8.5-10.1); CARBON DIOXIDE LEVEL 31 MMOL/L (20-31); CHLORIDE LEVEL 97 MMOL/L (98-107); CK-MB VALUE MASS < 1.0 NG/ML (<3.6); CREATININE FOR GFR 0.65 MG/DL (0.55-1.30); GLOMERULAR FILTRATION RATE > 60.0 (>51); GLUCOSE, FASTING 192 MG/DL (60-100); MB/CK RELATIVE INDEX 0.84 (< OR =4); POTASSIUM SERUM 4.4 MMOL/L (3.5-5.1); SODIUM LEVEL 135 MMOL/L (136-145); TOTAL PROTEIN 7.6 G/DL (5.7-8.2)
[2024-05-13 00:55] LABS: CK-MB VALUE MASS < 1.0 NG/ML (<3.6)
[2024-05-13 01:02] LABS: CPK CREATINE PHOSPHOKINASE 114 U/L (34-145); MB/CK RELATIVE INDEX 0.87 (< OR =4)
[2024-05-13] MEDS: OSELTAMIVIR PHOSPHATE 75 MG CAP PO ONE (02:26)
[2024-05-13] MEDS ORDERED: MOM 30ML SUSPENSION UDC PO PRN (02:50)
[2024-05-13] MEDS: LEVALBUTEROL 1.25MG 0.5ML CONCENTRATE NEB INH SCH (03:38)
[2024-05-13] MEDS ORDERED: HOME MED LIST COMPLETE! XX SCH (03:55)
[2024-05-13] MEDS: BENZONATATE 100MG CAPSULE PO SCH (05:13)
[2024-05-13] MEDS: methylPREDNISolone 125MG 2ML VIAL IV SCH (05:14)
[2024-05-13] MEDS: ACETAMINOPHEN 325 MG TAB PO PRN (08:13)
[2024-05-13] MEDS: OSELTAMIVIR PHOSPHATE 75 MG CAP PO SCH (08:24)
[2024-05-13] MEDS: NICOTINE 14 MG/24 HR TRANSDERMAL TD SCH (08:24)
[2024-05-13] MEDS: PANTOPRAZOLE 40MG VIAL IV SCH (08:25)
[2024-05-13] MEDS: HEPARIN SOD (PORCINE) 5000UNITS/ML 1ML VIAL/SYRINGE SC SCH (08:26)
[2024-05-13 09:17] LABS: ABG BASE EXCESS 0.3 (-2.0-2.0); ABG HCO3 28.8 MMOL/L (22.0-26.0); ABG O2 SATURATION 93.6 % (95.0-99.0); ABG STANDARD HCO3 24.7 MMOL/L. (22.0-26.0); ABG TOTAL CO2 30.8 MMOL/L (22.0-29.0); ABG pH (ARTERIAL) 7.274 UNITS (7.350-7.450)
[2024-05-13 09:18] LABS: ABG PARTIAL PRESSURE CO2 63.6 mmHg (35.0-45.0)
[2024-05-13 12:15] VITALS: BP 140/79; TEMP 97.5; O2SAT 92
[2024-05-13 16:19] VITALS: O2SAT 89
[2024-05-13 16:48] VITALS: O2SAT 90
[2024-05-13 18:48] VITALS: O2SAT 92
[2024-05-13 20:00] VITALS: BP 140/82; TEMP 97.5; O2SAT 92
[2024-05-14 04:00] VITALS: BP 135/79; TEMP 97.7; O2SAT 90
[2024-05-14 05:47] LABS: ABG BASE EXCESS 5.6 (-2.0-2.0); ABG HCO3 32.6 MMOL/L (22.0-26.0); ABG O2 SATURATION 90.5 % (95.0-99.0); ABG PARTIAL PRESSURE CO2 57.5 mmHg (35.0-45.0); ABG PARTIAL PRESSURE O2 70.7 mmHg (75.0-100.0); ABG STANDARD HCO3 29.3 MMOL/L. (22.0-26.0); ABG TOTAL CO2 34.3 MMOL/L (22.0-29.0); ABG pH (ARTERIAL) 7.371 UNITS (7.350-7.450)
[2024-05-14 06:30] LABS: BASO % 0.1 % (0.0-1.0); EOS % 0.2 % (0.0-3.0); HEMATOCRIT 43.1 % (36.0-47.0); HEMOGLOBIN 13.3 g/dl (12.0-15.5); LYMPH % 8.3 % (24.0-44.0); MEAN CORPUSCULAR HEMOGLOBIN 28.3 pg (27.0-33.0); MEAN CORPUSCULAR HGB CONC 30.9 g/dl (32.0-36.5); MEAN CORPUSCULAR VOLUME 91.7 fl (80.0-96.0); MONO # 0.5 10^3/uL (0.0-0.8); MONO % 4.1 % (2.0-8.0); NEUTROPHILS # 10.7 10^3/uL (1.5-8.5); NEUTROPHILS % 86.7 % (36.0-66.0); PLATELET COUNT, AUTOMATED 276 10^3/uL (150-450); WHITE BLOOD COUNT 12.4 10^3/uL (4.0-10.0)
[2024-05-14 07:14] LABS: ALKALINE PHOSPHATASE 156 U/L (35-104); ALT/SGPT 26 U/L (7.0-40); AST/SGOT 9 U/L (<34); BILIRUBIN,TOTAL 0.4 MG/DL (0.3-1.2); BLOOD UREA NITROGEN 15 MG/DL (9-23); CALCIUM LEVEL 8.9 MG/DL (8.5-10.1); CARBON DIOXIDE LEVEL 32 MMOL/L (20-31); CHLORIDE LEVEL 99 MMOL/L (98-107); CREATININE FOR GFR 0.54 MG/DL (0.55-1.30); GLOMERULAR FILTRATION RATE > 60.0 (>51); GLUCOSE, FASTING 418 MG/DL (60-100); POTASSIUM SERUM 4.5 MMOL/L (3.5-5.1); SODIUM LEVEL 138 MMOL/L (136-145); TOTAL PROTEIN 7.1 G/DL (5.7-8.2)
[2024-05-14] MEDS: GLYCOPYRROLATE INJ 0.2 MG/ML 2 ML VIAL NEB SCH (07:38)
[2024-05-14] MEDS: BUDESONIDE 0.5 MG/2 ML INHALATION SUSPENSION NEB SCH (07:42)
[2024-05-14] MEDS ORDERED: GLUCOSE 4 GM CHEW PO PRN ×2 (08:25→17:45)
[2024-05-14] MEDS ORDERED: GLUCAGON INJ 1MG VIAL SC PRN ×2 (08:25→17:45)
[2024-05-14] MEDS ORDERED: DEXTROSE 50% 50ML SYRINGE IV PRN ×2 (08:25→17:45)
[2024-05-14] MEDS: FORMOTEROL FUMARATE 20 MCG/2 ML INHALATION SOLUTION (PERFOROMIST) INH SCH (08:44)
[2024-05-14] MEDS: guaiFENesin ER TABLET 600 MG TAB PO SCH (09:06)
[2024-05-14] MEDS: HumuLIN R (REGULAR) INSULIN (NovoLIN R) **100U/ML** PER UNIT IV STA ×2 (09:07→17:57)
[2024-05-14 09:25] LABS: HEMOGLOBIN A1c 9.7 % (4.0-6.0)
[2024-05-14] MEDS: LIDOCAINE 5% (LIDODERM) PATCH TD SCH (10:36)
[2024-05-14 12:00] VITALS: BP 134/79; TEMP 97.9; O2SAT 92
[2024-05-14] MEDS: INSULIN LISPRO (NovoLOG) PER UNIT SC SCH ×2 (12:34→21:08)
[2024-05-14] MEDS: methylPREDNISolone 125MG 2ML VIAL IV SCH (15:01)
[2024-05-14 19:34] VITALS: O2SAT 92
[2024-05-14 20:00] VITALS: BP 138/79; TEMP 97.7; O2SAT 91
[2024-05-15 04:00] VITALS: BP 144/67; TEMP 97.5; O2SAT 90
[2024-05-15 06:24] LABS: ABG BASE EXCESS 7.3 (-2.0-2.0); ABG HCO3 33.9 MMOL/L (22.0-26.0); ABG PARTIAL PRESSURE O2 82.6 mmHg (75.0-100.0); ABG STANDARD HCO3 31.1 MMOL/L. (22.0-26.0); ABG TOTAL CO2 35.6 MMOL/L (22.0-29.0)
[2024-05-15] MEDS: HEPARIN SOD (PORCINE) 5000UNITS/ML 1ML VIAL/SYRINGE SC SCH (06:28)
[2024-05-15] MEDS: INSULIN LISPRO (NovoLOG) PER UNIT SC SCH ×3 (08:09→19:02)
[2024-05-15] MEDS: methylPREDNISolone 40MG 1ML VIAL IV SCH (08:09)
[2024-05-15 08:39] LABS: BLOOD UREA NITROGEN 18 MG/DL (9-23); CALCIUM LEVEL 8.9 MG/DL (8.5-10.1); CARBON DIOXIDE LEVEL 36 MMOL/L (20-31); CHLORIDE LEVEL 98 MMOL/L (98-107); CREATININE FOR GFR 0.51 MG/DL (0.55-1.30); GLOMERULAR FILTRATION RATE > 60.0 (>51); GLUCOSE, FASTING 274 MG/DL (60-100); POTASSIUM SERUM 4.3 MMOL/L (3.5-5.1); SODIUM LEVEL 138 MMOL/L (136-145)
[2024-05-15 12:00] VITALS: BP 147/98; TEMP 96.8; O2SAT 97
[2024-05-15] MEDS: EXCEDRIN MIGRAINE TABLET PO PRN (13:32)
[2024-05-15 20:00] VITALS: BP 142/92; TEMP 97.3; O2SAT 92
[2024-05-16] VITALS (8 sets, daily range): BP systolic 117–146; BP diastolic 72–86; TEMP 97.3–97.6; O2SAT 87–97
[2024-05-16 07:52] LABS: BLOOD UREA NITROGEN 19 MG/DL (9-23); CALCIUM LEVEL 8.8 MG/DL (8.5-10.1); CARBON DIOXIDE LEVEL 36 MMOL/L (20-31); CHLORIDE LEVEL 100 MMOL/L (98-107); CREATININE FOR GFR 0.67 MG/DL (0.55-1.30); GLOMERULAR FILTRATION RATE > 60.0 (>51); GLUCOSE, FASTING 194 MG/DL (60-100); POTASSIUM SERUM 4.4 MMOL/L (3.5-5.1); SODIUM LEVEL 143 MMOL/L (136-145)
[2024-05-16] MEDS: INSULIN LISPRO (NovoLOG) PER UNIT SC SCH (09:31)
[2024-05-16] MEDS: predniSONE 20 MG TAB PO SCH (09:31)
[2024-05-17 03:49] VITALS: BP 133/77; TEMP 97.5; O2SAT 100
[2024-05-17 06:30] LABS: BLOOD UREA NITROGEN 15 MG/DL (9-23); CALCIUM LEVEL 8.8 MG/DL (8.5-10.1); CARBON DIOXIDE LEVEL 33 MMOL/L (20-31); CHLORIDE LEVEL 100 MMOL/L (98-107); CREATININE FOR GFR 0.62 MG/DL (0.55-1.30); GLOMERULAR FILTRATION RATE > 60.0 (>51); GLUCOSE, FASTING 192 MG/DL (60-100); MAGNESIUM LEVEL 1.8 MG/DL (1.8-2.4); POTASSIUM SERUM 3.9 MMOL/L (3.5-5.1); SODIUM LEVEL 142 MMOL/L (136-145)
[2024-05-17] MEDS: LanTUS (INSULIN GLARGINE INJ) 1 UNITS/0.01 ML SC SCH (09:52)
[2024-05-17] MEDS ORDERED: MUCI600T31 PO (11:25)
[2024-05-17] MEDS ORDERED: METF-839 PO (11:25)
[2024-05-17] MEDS ORDERED: LANC1COM MC (11:25)
[2024-05-17] MEDS ORDERED: FREEMIS42 TOP (11:25)
[2024-05-17] MEDS ORDERED: HUMA50IN4 SC (11:25)
[2024-05-17] MEDS ORDERED: LANTINJ4 SC (11:25)
[2024-05-17] MEDS ORDERED: OSEL75CA2 PO (11:25)
[2024-05-17] MEDS ORDERED: GLUCMIS7 XX (11:25)
[2024-05-17] MEDS ORDERED: PRED10TA2 PO (11:25)
== END 2024-05-17 13:17 | disposition home health service (06) | DRG 140 ==
LOC: M ED 21:38 → M ED INP 05-13 02:48 → M MSPAV 05-13 12:04
PROVIDERS: ADMIT Student in an Organized Health Care Education/Training Program; ATTEND Student in an Organized Health Care Education/Training Program
DX: J44.1 Chronic obstructive pulmonary disease with (acute) exacerbation (principal); F32.A Depression, unspecified; E11.9 Type 2 diabetes mellitus without complications; F41.9 Anxiety disorder, unspecified; G47.30 Sleep apnea, unspecified; J11.1 Influenza due to unidentified influenza virus with other respiratory manifestations; F17.200 Nicotine dependence, unspecified, uncomplicated; Z79.899 Other long term (current) drug therapy

== ENCOUNTER → 2025-01-03 | Outpatient (REF) | payer OTHER, MEDICAID ==
[~2025-01-03] MED LIST changes: +FREEMIS42 TOP; +GLUCMIS7 XX; +HUMA50IN4 SC; +LANC1COM MC; +LANTINJ4 SC; +METF-839 PO; +MUCI600T31 PO; +OSEL75CA2 PO; +PRED10TA2 PO; +TREL1AER INH
[2025-01-03 16:23] LABS: CREATININE, URINE 110.6 MG/DL; MALB URINE SIEMENS 28.0 MG/L; MAU/CREAT RATIO 25.3 MCG/MG (0.0-30.0)
[2025-01-03 18:36] LABS: BASO # 0.1 10^3/uL (0.0-0.2); BASO % 0.7 % (0.0-1.0); EOS # 0.2 10^3/uL (0.0-0.5); EOS % 1.8 % (0.0-3.0); LYMPH # 2.4 10^3/uL (1.5-5.0); LYMPH % 24.8 % (24.0-44.0); MONO # 0.7 10^3/uL (0.0-0.8); MONO % 7.3 % (2.0-8.0); NEUTROPHILS # 6.3 10^3/uL (1.5-8.5); NEUTROPHILS % 65.0 % (36.0-66.0); PLATELET COUNT, AUTOMATED 341 10^3/uL (150-450)
[2025-01-03 18:40] LABS: IRON (FE) 38 UG/DL (50-170); PERCENT SATURATION 12.3 % (13.2-45.0)
[2025-01-03 18:41] LABS: ALT/SGPT 28 U/L (7.0-40); AST/SGOT 18 U/L (<34); CALCIUM LEVEL 9.4 MG/DL (8.5-10.1); CARBON DIOXIDE LEVEL 33 MMOL/L (20-31); CHLORIDE LEVEL 99 MMOL/L (98-107); CREATININE FOR GFR 0.62 MG/DL (0.55-1.30); GLOMERULAR FILTRATION RATE > 90.0 (>51); POTASSIUM SERUM 4.4 MMOL/L (3.5-5.1); SODIUM LEVEL 140 MMOL/L (136-145); TOTAL 25(OH) VITAMIN D 14.8 NG/ML (20.0-100.0)
[2025-01-03 18:54] LABS: ESTIMATED AVERAGE GLUCOSE 160.0 MG/DL (60-110)
== END ==
LOC: M LAB REF 15:08
PROVIDERS: ATTEND Pediatrics
DX: E11.69 Type 2 diabetes mellitus with other specified complication (principal); F50.89 Other specified eating disorder; E55.9 Vitamin D deficiency, unspecified